=== PATIENT | female | born 1935 | race Caucasian/White ===

== ENCOUNTER 2016-09-24 10:23 | Emergency (ER) | payer OTHER ==
[~2016-09-24] VITALS: Ht 162.6 cm; Wt 59.0 kg
[~2016-09-24 10:23] MED LIST: ALLOPURINOL100 MG PO; AMARYL2 MG PO; ARICEPT10 MG PO; ASPIR-LOW81 MG; BACTRIM,SEPT1 TABLET PO; BUPROPION XL300 MG PO; CALTRATE 6001 TABLET PO; CARBIDOPA-LEVO1 EAC5 PO; CENTRUM SILVER1 EAC3 PO; CRESTOR10 MG PO; DESYREL12.5 MG PO; FERGON324 MG PO; FLEXERIL10 MG PO; FLONASE16 G1 BOTH NARES; HEARTBURN150 MG PO; HYDROMORPHONE HC2 MG PO; INDAPAMIDE2.5 MG PO; IRON325 MG PO; JANUVIA25 M1 PO; KLONOPIN0.5 M1 PO; LEVOFLOXACIN750 MG PO; MAVIK2 MG PO; MEDROL DOSEPAK4 MG PO; METFORMIN HCL500 MG PO; METHYLPHENIDATE20 M2 PO; METOCLOPRAMIDE H5 MG PO; NAMENDA10 MG PO; NEXIUM40 MG PO; PREVACID30 MG PO; PULMICORT0.25 MG/1 IH; RANITIDINE HCL150 MG PO; TOVIAZ4 MG; TRAZODONE HCL100 MG PO; VENLAFAXINE H37.5 M1 PO; VENTOLIN HFA18 GM IH; VITAMIN C500 M1 PO; VITAMIN E400 UNIT PO
[2016-09-24 11:15] LABS: EOSINOPHIL (%) 1.6 % (0-5); EOSINOPHIL COUNT 0.2 K/uL (0-0.3); HEMATOCRIT 32.3 % (36.0-46.0); IMMATURE GRANULOCYTE (%) 1.1 % (0.0-0.7); IMMATURE GRANULOCYTE COUNT 0.1 K/uL; INSTRUMENT ABS NEUTROPHIL CT 7.7 K/uL; LYMPHOCYTE COUNT 1.4 K/uL (1.0-2.8); MCH 31.4 PG (29.0-34.0); MCHC 33.4 G/DL (30.0-36.0); MCV 93.9 FL (83-99); MEAN PLAT.VOLUME 9.7 uM^3 (9.5-12.4); MONOCYTE (%) 5.3 % (3-12); MONOCYTE COUNT 0.5 K/uL (0-0.8); NEUTROPHIL (%) 77.9 % (45-76); NEUTROPHIL COUNT 7.7 K/uL (1.8-6.4); PLATELET COUNT 234 K/uL (156-360); RBC DIS.WIDTH-SD 47.7 % (39-53); RED BLOOD COUNT 3.44 M/uL (3.80-5.20); WHITE BLOOD COUNT 9.9 K/uL (4.1-10.2)
[2016-09-24 11:25] LABS: CHLORIDE 107 mEq/L (99-109); POTASSIUM 3.8 mEq/L (3.7-5.4); SODIUM 144 mEq/L (136-147)
[2016-09-24 11:26] LABS: GLUCOSE 103 mg/dL (70-99)
[2016-09-24 11:28] LABS: ANION GAP 11 MEQ/L (2-14)
[2016-09-24 11:30] LABS: GFR ESTIMATE (CALCULATED) 42 mL/min/
[2016-09-24 11:31] LABS: UREA NITROGEN (BUN) 27 mg/dL (9-23)
[2016-09-24 14:13] VITALS: BP 122/64
== END 2016-09-24 14:30 | disposition home or self-care (01) ==
LOC: EME 10:23
PROVIDERS: Emergency Medicine
DX: M25.551 Pain in right hip (principal); E11.9 Type 2 diabetes mellitus without complications; J44.9 Chronic obstructive pulmonary disease, unspecified; E78.5 Hyperlipidemia, unspecified; I10 Essential (primary) hypertension; K21.9 Gastro-esophageal reflux disease without esophagitis; G20 Parkinson's disease; Z79.82 Long term (current) use of aspirin; Z79.84 Long term (current) use of oral hypoglycemic drugs
CPT/HCPCS: 73721; 80048; 85025; 99281; 99283

== ENCOUNTER → 2016-10-24 | Outpatient (CLI) | payer OTHER | END | disposition home or self-care (01) | DX: K22.4 Dyskinesia of esophagus (principal); R13.11 Dysphagia, oral phase; R13.13 Dysphagia, pharyngeal phase | CPT/HCPCS: 92611 GN; G8996 GN; G8997 GN; G8998 GN ==

== ENCOUNTER 2016-11-03 20:00 | Inpatient (IN) | payer OTHER ==
[~2016-11-03] VITALS: Ht 165.1 cm; Wt 56.4 kg
[~2016-11-03 20:00] MED LIST changes: -ASPIR-LOW81 MG; +ASPIR-LOW81 MG PO; +IRON325 M1 PO; -IRON325 MG PO
[2016-11-03 20:32] LABS: MCH 31.6 PG (29.0-34.0); MCHC 33.4 G/DL (30.0-36.0); MCV 94.4 FL (83-99); MEAN PLAT.VOLUME 9.9 uM^3 (9.5-12.4); PLATELET COUNT 239 K/uL (156-360); RBC DIS.WIDTH-CV 14.9 % (11.8-14.6); RED BLOOD COUNT 3.39 M/uL (3.80-5.20); WHITE BLOOD COUNT 9.5 K/uL (4.1-10.2)
[2016-11-03 20:51] LABS: CHLORIDE 107 mEq/L (99-109); POTASSIUM 4.2 mEq/L (3.7-5.4); SODIUM 142 mEq/L (136-147)
[2016-11-03 20:54] LABS: GLUCOSE 39 mg/dL (70-99)
[2016-11-03 20:56] LABS: ANION GAP 14 MEQ/L (2-14); TOTAL BILIRUBIN 0.2 mg/dL (0.0-1.0)
[2016-11-03 20:57] LABS: ALKALINE PHOSPHATASE 85 IU/L (3-129); GFR ESTIMATE (CALCULATED) 33 mL/min/
[2016-11-03 20:58] LABS: UREA NITROGEN (BUN) 37 mg/dL (9-23)
[2016-11-03 21:01] LABS: POINT-OF-CARE METER ID UU13113747
[2016-11-03 21:20] LABS: TROP-I INTERPRETATION NEGATIVE; TROPONIN-I < 0.01 ng/mL (0.0-0.30)
[2016-11-03 21:50] LABS: POINT-OF-CARE METER ID UU13113747
[2016-11-03 22:52] LABS: ADD MIUA? NO; BILIRUBIN NEGATIVE; BLOOD NEGATIVE; COLOR YELLOW ((YELLOW)); GLUCOSE (STRIP) 50; KETONES NEGATIVE; LEUKOCYTES NEGATIVE; NITRITE NEGATIVE; PROTEIN (STRIP) NEGATIVE; SPECIFIC GRAVITY 1.014 (1.000-1.030); UCUL ADDED? NO; UROBILINOGEN 0.2 MG/DL (0.2-1.0)
[2016-11-03] MEDS ORDERED: ALBUTEROL2.5 MG/3 M IH (23:20)
[2016-11-03] MEDS ORDERED: CENTRUM SILVER1 EAC3 PO (23:20)
[2016-11-03] MEDS ORDERED: CELEBREX200 MG PO (23:20)
[2016-11-03] MEDS ORDERED: VOLTAREN 1% GE100 GM TP (23:20)
[2016-11-03] MEDS ORDERED: BACTRIM,SEPT1 TABLET PO (23:21)
[2016-11-03] MEDS ORDERED: LINZESS290 MCG PO (23:21)
[2016-11-03] MEDS ORDERED: PERCOCET 7.51 TABLET PO (23:21)
[2016-11-03] MEDS ORDERED: WELLBUTRIN XL300 MG PO (23:21)
[2016-11-03] MEDS ORDERED: ALLOPURINOL100 MG PO (23:21)
[2016-11-03] MEDS ORDERED: JANUVIA25 M1 PO (23:22)
[2016-11-03] MEDS ORDERED: CRESTOR10 MG PO (23:22)
[2016-11-04 00:20] LABS: POINT-OF-CARE METER ID UU13113747
[2016-11-04 00:38] VITALS: BP 122/76
[2016-11-04 02:57] LABS: POINT-OF-CARE METER ID UU13113781
[2016-11-04 04:14] VITALS: BP 111/62
[2016-11-04 04:18] LABS: POINT-OF-CARE METER ID UU13113698
[2016-11-04 05:29] LABS: TROP-I INTERPRETATION NEGATIVE; TROPONIN-I < 0.01 ng/mL (0.0-0.30)
[2016-11-04 07:48] VITALS: BP 94/54
[2016-11-04 08:15] LABS: POINT-OF-CARE METER ID UU13113698; POINT-OF-CARE USER ID ENVKC36
[2016-11-04 09:16] LABS: ANION GAP 12 MEQ/L (2-14); CHLORIDE 105 MEQ/L (99-109); GFR ESTIMATE (CALCULATED) 38 mL/min/; GLUCOSE 66 mg/dL (70-99); POTASSIUM 4.4 MEQ/L (3.7-5.4); SAMPLE HEMOLYSIS CHECK 0; SAMPLE ICTERIC CHECK 0; SAMPLE LIPEMIA CHECK 0; SODIUM 142 MEQ/L (136-147); UREA NITROGEN (BUN) 31 mg/dL (9-23)
[2016-11-04 11:34] VITALS: BP 100/57
[2016-11-04 12:08] LABS: TROP-I INTERPRETATION NEGATIVE; TROPONIN-I < 0.01 ng/mL (0.0-0.30)
[2016-11-04 12:46] LABS: POINT-OF-CARE METER ID UU13113698; POINT-OF-CARE USER ID ENVKC36
[2016-11-04 15:14] VITALS: BP 115/56
[2016-11-04 15:31] LABS: POINT-OF-CARE METER ID UU13113698
[2016-11-04 16:13] LABS: POINT-OF-CARE METER ID UU13113747
[2016-11-04 18:35] LABS: POINT-OF-CARE METER ID UU13113781
[2016-11-04 18:50] VITALS: BP 142/67
[2016-11-05 00:39] VITALS: BP 134/65
[2016-11-05 03:47] LABS: POINT-OF-CARE METER ID UU14188625
[2016-11-05 06:11] LABS: HEMATOCRIT 30.5 % (36.0-46.0); MCH 31.1 PG (29.0-34.0); MCHC 32.8 G/DL (30.0-36.0); MCV 94.7 FL (83-99); MEAN PLAT.VOLUME 9.9 uM^3 (9.5-12.4); PLATELET COUNT 230 K/uL (156-360); RBC DIS.WIDTH-CV 14.7 % (11.8-14.6); RED BLOOD COUNT 3.22 M/uL (3.80-5.20); WHITE BLOOD COUNT 8.1 K/uL (4.1-10.2)
[2016-11-05 06:34] LABS: POINT-OF-CARE METER ID UU13113717
[2016-11-05 06:37] LABS: ANION GAP 10 MEQ/L (2-14); CHLORIDE 105 MEQ/L (99-109); GFR ESTIMATE (CALCULATED) 46 mL/min/; POTASSIUM 4.6 MEQ/L (3.7-5.4); SAMPLE HEMOLYSIS CHECK 0; SAMPLE ICTERIC CHECK 0; SAMPLE LIPEMIA CHECK 0; SODIUM 141 MEQ/L (136-147); UREA NITROGEN (BUN) 22 mg/dL (9-23)
[2016-11-05 06:38] LABS: GLUCOSE 187 mg/dL (70-99)
[2016-11-05 07:38] VITALS: BP 150/89
[2016-11-05] MEDS ORDERED: NOVOLOG PE100 UNITS/ SC (09:40)
[2016-11-05 09:47] LABS: Estimated Average Glucose 114 mg/dL (70-123); HEMOGLOBIN A1c (GLYCOHEMOGLOB) 5.6 % HGB (Below 5.7)
[2016-11-05 11:03] LABS: POINT-OF-CARE METER ID UU13113717
== END 2016-11-05 14:23 | disposition home or self-care (01) | DRG 639 ==
LOC: EME → EDBD 20:00 → EDOF 23:17 → 4EAST 23:17 → EDOF 23:17 → ENRESERV 23:18 → 4EAST 11-04 00:36 → 5SOUTH 11-04 16:10 → 4EAST 11-04 16:10 → ENRESERV 11-04 17:27 → 5SOUTH 11-04 18:18
PROVIDERS: Emergency Medicine; Hospitalist
DX: E11.649 Type 2 diabetes mellitus with hypoglycemia without coma (principal); G20 Parkinson's disease; J44.9 Chronic obstructive pulmonary disease, unspecified; K21.9 Gastro-esophageal reflux disease without esophagitis; F03.90 Unspecified dementia, unspecified severity, without behavioral disturbance, psychotic disturbance, mood disturbance, and anxiety; I10 Essential (primary) hypertension; E78.5 Hyperlipidemia, unspecified; R32 Unspecified urinary incontinence; N28.9 Disorder of kidney and ureter, unspecified; R55 Syncope and collapse
CPT/HCPCS: 71010; 74176; 80048; 80053; 81003; 82948; 83036; 84484; 85027; 93005; 94640; 94640 76; 99202; 99281; 99285; G0378; G8978 GP CJ; G8979 GP CI; G8987 GO CJ; G8988 CI; J1644

== ENCOUNTER 2017-02-16 11:24 | Observation (INO) | payer OTHER ==
[~2017-02-16] VITALS: Ht 162.6 cm; Wt 42.5 kg
[~2017-02-16 11:24] MED LIST changes: +ALBUTEROL2.5 MG/3 M IH; +CELEBREX200 MG PO; +LINZESS290 MCG PO; +NOVOLOG PE100 UNITS/ SC; +PERCOCET 7.51 TABLET PO; +VOLTAREN 1% GE100 GM TP; +WELLBUTRIN XL300 MG PO
[2017-02-16 12:45] LABS: HEMOGLOBIN 12.5 G/DL (11.9-15.5); MCHC 33.8 G/DL (30.0-36.0); MCV 94.6 FL (83-99); PLATELET COUNT 297 K/uL (156-360); RBC DIS.WIDTH-CV 14.1 % (11.8-14.6); RBC DIS.WIDTH-SD 48.2 % (39-53); RED BLOOD COUNT 3.91 M/uL (3.80-5.20); WHITE BLOOD COUNT 13.1 K/uL (4.1-10.2)
[2017-02-16 13:04] LABS: CHLORIDE 102 mEq/L (99-109); POTASSIUM 3.4 mEq/L (3.7-5.4); SODIUM 142 mEq/L (136-147)
[2017-02-16 13:05] LABS: GLUCOSE 118 mg/dL (70-99)
[2017-02-16 13:09] LABS: CREATININE 1.4 mg/dL (0.6-1.3); GFR ESTIMATE (CALCULATED) 38 mL/min/
[2017-02-16 13:10] LABS: UREA NITROGEN (BUN) 33 mg/dL (9-23)
[2017-02-16 14:04] LABS: TROP-I INTERPRETATION NEGATIVE; TROPONIN-I 0.01 ng/mL (0.0-0.30)
[2017-02-16 17:30] VITALS: BP 105/62
[2017-02-16 19:45] VITALS: BP 121/68
[2017-02-16 20:13] LABS: TROP-I INTERPRETATION NEGATIVE; TROPONIN-I 0.02 ng/mL (0.0-0.30)
[2017-02-17 00:09] VITALS: BP 102/56
[2017-02-17 00:50] LABS: TROP-I INTERPRETATION NEGATIVE; TROPONIN-I 0.02 ng/mL (0.0-0.30)
[2017-02-17 05:15] VITALS: BP 109/66
[2017-02-17 06:30] LABS: HEMATOCRIT 33.7 % (36.0-46.0); MCH 31.1 PG (29.0-34.0); MCHC 32.6 G/DL (30.0-36.0); MCV 95.2 FL (83-99); PLATELET COUNT 259 K/uL (156-360); RBC DIS.WIDTH-SD 48.9 % (39-53); RED BLOOD COUNT 3.54 M/uL (3.80-5.20); WHITE BLOOD COUNT 10.3 K/uL (4.1-10.2)
[2017-02-17 07:00] LABS: CHLORIDE 103 MEQ/L (99-109); CREATININE 1.4 MG/DL (0.6-1.3); GFR ESTIMATE (CALCULATED) 38 mL/min/; GLUCOSE 102 mg/dL (70-99); POTASSIUM 2.9 MEQ/L (3.7-5.4); SODIUM 146 MEQ/L (136-147); UREA NITROGEN (BUN) 34 mg/dL (9-23)
[2017-02-17 09:30] VITALS: BP 101/63
[2017-02-17 11:32] VITALS: BP 100/58
[2017-02-17 17:08] VITALS: BP 129/66
[2017-02-17 19:34] VITALS: BP 108/54
[2017-02-18 00:06] VITALS: BP 114/58
[2017-02-18 08:50] VITALS: BP 114/63
[2017-02-18 11:05] VITALS: BP 97/54
[2017-02-18] MEDS ORDERED: CALCIUM 600 +1 EAC2 PO (14:04)
[2017-02-18 15:06] VITALS: BP 111/55
== END 2017-02-18 18:58 | disposition home or self-care (01) ==
LOC: EME 11:24 → EDOF 16:00 → ENRESERV 16:06 → 5WEST 17:18
PROVIDERS: Internal Medicine; Physician Assistant
DX: R07.9 Chest pain, unspecified (principal); R13.10 Dysphagia, unspecified; R63.4 Abnormal weight loss; D72.829 Elevated white blood cell count, unspecified; E86.0 Dehydration; G20 Parkinson's disease; F02.80 Dementia in other diseases classified elsewhere, unspecified severity, without behavioral disturbance, psychotic disturbance, mood disturbance, and anxiety; E87.6 Hypokalemia; I12.9 Hypertensive chronic kidney disease with stage 1 through stage 4 chronic kidney disease, or unspecified chronic kidney disease; E11.22 Type 2 diabetes mellitus with diabetic chronic kidney disease; N18.9 Chronic kidney disease, unspecified; G24.9 Dystonia, unspecified; D68.9 Coagulation defect, unspecified; R06.02 Shortness of breath; I48.91 Unspecified atrial fibrillation; J44.9 Chronic obstructive pulmonary disease, unspecified; Z79.82 Long term (current) use of aspirin; Z88.0 Allergy status to penicillin; Z88.4 Allergy status to anesthetic agent; Z88.8 Allergy status to other drugs, medicaments and biological substances; Z91.040 Latex allergy status; Z82.49 Family history of ischemic heart disease and other diseases of the circulatory system; Z90.49 Acquired absence of other specified parts of digestive tract; Z90.710 Acquired absence of both cervix and uterus
CPT/HCPCS: 71020; 78582; 80048; 81003; 84484; 85027; 85379; 92610 GN; 93005; 93970; 94640; 94640 76; 99202; 99281; 99285; A9540; A9567; G0378; G8996 GN CJ; G8997 GN CJ; G8998 GN CJ; J1650; J3480; J7040

== ENCOUNTER 2017-04-18 13:59 | Emergency (ER) | payer OTHER ==
[~2017-04-18] VITALS: Ht 162.6 cm; Wt 35.5 kg
[~2017-04-18 13:59] MED LIST changes: +CALCIUM 600 +1 EAC2 PO
[2017-04-18 14:26] LABS: HEMATOCRIT 30.3 % (36.0-46.0); HEMOGLOBIN 10.2 G/DL (11.9-15.5); MCHC 33.7 G/DL (30.0-36.0); MCV 92.1 FL (83-99); NRBC (%) 0.2 /100 WBC (0-0); PLATELET COUNT 303 K/uL (156-360); RBC DIS.WIDTH-CV 16.3 % (11.8-14.6); RBC DIS.WIDTH-SD 54.9 % (39-53); RED BLOOD COUNT 3.29 M/uL (3.80-5.20); WHITE BLOOD COUNT 17.7 K/uL (4.1-10.2)
[2017-04-18 14:35] LABS: CHLORIDE 105 mEq/L (99-109); POTASSIUM 4.7 mEq/L (3.7-5.4); SODIUM 138 mEq/L (136-147)
[2017-04-18 14:37] LABS: GLUCOSE 152 mg/dL (70-99)
[2017-04-18 14:41] LABS: CREATININE 1.6 mg/dL (0.6-1.3); GFR ESTIMATE (CALCULATED) 33 mL/min/; UREA NITROGEN (BUN) 38 mg/dL (9-23)
[2017-04-18 14:48] LABS: TROP-I INTERPRETATION NEGATIVE; TROPONIN-I 0.03 ng/mL (0.0-0.30)
[2017-04-18 16:41] VITALS: BP 126/79
== END 2017-04-18 16:41 | disposition home or self-care (01) ==
LOC: EME 13:59
PROVIDERS: Emergency Medicine Emergency Medical Services
DX: R55 Syncope and collapse (principal); E46 Unspecified protein-calorie malnutrition; R41.82 Altered mental status, unspecified; G20 Parkinson's disease; K21.9 Gastro-esophageal reflux disease without esophagitis; J44.9 Chronic obstructive pulmonary disease, unspecified; I10 Essential (primary) hypertension; E11.9 Type 2 diabetes mellitus without complications; E78.5 Hyperlipidemia, unspecified; F32.9 Major depressive disorder, single episode, unspecified; Z91.040 Latex allergy status; Z88.0 Allergy status to penicillin; Z88.4 Allergy status to anesthetic agent
CPT/HCPCS: 80048; 82948; 84484; 85027; 93005; 99281; 99284